=== PATIENT | male | born 1950 | race Caucasian/White ===

== ENCOUNTER 2017-02-15 18:08 | Inpatient (IN) | payer MEDICARE, MEDICAID ==
[2017-02-15] MEDS ORDERED: ACETAMINOPHEN TAB 325 MG TAB PO PRN (23:27)
[2017-02-15] MEDS ORDERED: MAG HYDROX/AL HYDROX/SIMETH 30 ML CUP PO PRN (23:27)
[2017-02-15] MEDS ORDERED: ZIPRASIDONE 20 MG VIAL IM PRN (23:27)
[2017-02-16] MEDS: NICOTINE 14MG/24HR PATCH TRANSDERM SCH ×2 (01:37→08:01)
[2017-02-16 01:40] VITALS: BMI 29.7
[2017-02-16] MEDS: ASPIRIN 81 MG CHEW PO SCH (08:02)
[2017-02-16] MEDS: METOPROLOL TARTRATE 12.5 MG TAB PO SCH (08:02)
[2017-02-16] MEDS: APIXABAN 5 MG TAB PO SCH ×2 (08:02→21:21)
[2017-02-16] MEDS ORDERED: NICOTINE 14MG/24HR PATCH TRANSDERM SCH (09:00)
--- NOTE | 2017-02-16 09:52 | P.HP ---
Psychiatric H&P - . H&P Date: 02/16/17 History & Physical: DATE OF SERVICE: 02/16/2017 DATE OF ADMISSION: 02/15/2017 IDENTIFYING DATA: The patient is a 66-year-old male. He lives alone. He presented to the emergency room of [facility] for unclear reasons. CHIEF COMPLAINT: The patient was confused. He had disorganized behavior. He had some agitation. He had delusional thinking. HISTORY OF PRESENTING ILLNESS: Information is limited. We have medical reports from [facility] for 02/14 and 02/15/20172016. The patient could only provide very limited information. According to records the patient had a hospitalization prior to 02/14 for acute kidney injury elevated transaminases with presumed dehydration. He left A. He returned to the emergency department on 02/14. The patient provided very limited information. The family reported that the patient was "not acting himself that he is very delusional. He is having stressors at home because he lost contact with his sons. Family is very concerned about his ways of acting, they state that he is not himself." "He simply showed up to his neighbor's house, requested to go into the car without clear reason why. When the neighbor asked him what is going on, he told that neighbor that he was poisoned, that the water that he just drank was poisoned, his urine was becoming brown in color, and that the current world is a fake world/a parallel world and that this could potentially be helped." "He was behaving erratically, appeared to be unstable, therefore neighbor was able to convince him to come to the hospital. Patient was quite agitated, upset and showed signs of paranoia to his surrounding, he was concerned that people are following him." When I talked to the patient he was not able to give any information regarding his current situation. The only thing he could say was that he drove himself to the hospital. He acknowledged that to previously he had walked out of a hospital though he gave no reason for doing that. He recalled signing a form. He said that when he left he called a friend. He then said that he came to the conclusion that he should go back to the hospital. When I asked him why he went back to the hospital he said he was confused about that and didn't know. He states that he has not had a prior psychiatric hospitalization. He says that he had been on some psychiatric medicines about 20 years ago. He said he has been sleeping poorly. He could not provide any further information. From [facility] reconciled medication list included: Percocet 7.5 when necessary, amiodarone 200 mg twice a day, aspirin 81 mg, atorvastatin 10 mg daily, Ceftin 500 mg twice a day, Valium 5 mg twice a day, metoprolol 50 mg daily, Flagyl 500 mg 3 times a day for 10 days. All lab work from [facility] dated 02/15/2017 was normal including CBC and urinalysis comprehensive metabolic profile and lipid profile. Urine drug screen was negative SUBSTANCE USE: [Uncertain] PAST MEDICAL HISTORY: As per medical consultation FAMILY AND SOCIAL HISTORY: The patient reports that he is . He has 4 children. He works intermittently doing painting. He lives alone. MENTAL STATUS EXAM: The patient gave fair eye contact. Psychomotor activity was slowed. He hesitated and answering most questions as if he was trying to gather his thoughts. He had a confused manner. He acknowledges that his thoughts were "foggy." His affect was flat. His mood reserved. There was no immediate evidence for thought disorder. There was no indication of thoughts or impulses towards harm to self or others. On cognitive exam the patient gave the correct date without hesitation though initially said it was Sunday then not thought about it briefly and said it was towards the end of the week may be Sunday or . He didn't make an effort to answer other formal cognitive questions. PHYSICAL EXAM PER MEDICAL CONSULTATION ASSESSMENT: This 66-year-old male is diagnosed with delusional disorder of unclear etiology. He does show basic orientation which would call into question other his current state reflects delirium. Precipitating factors are uncertain. DIAGNOSIS 1. Delusional disorder of uncertain etiology asked 2. Recent history of metabolic encephalopathy 3. Suspected sepsis with leukocytosis 4. Rule out delirium 5. Atrial fibrillation 6. Benign essential hypertension 7. COPD 8. Hyperlipidemia 9. Tobacco use RECOMMENDATION/PLAN: The patient will be admitted for comprehensive medical psychiatric and psychosocial evaluation. We will engage the patient in individual and group therapeutic activities. At this point I will continue his outpatient medications. I will consider initiation of an antipsychotic medication to address delusions which may relate to a primary psychiatric disorder or an underlying metabolic disorder. We will need input from family for further evaluation Allergies Allergy/AdvReac Type Severity Reaction Status Date / Time codeine Allergy Rash/Hives Verified 02/16/17 01:42 Vital Signs Temp 98.2 F 02/16/17 06:19 Pulse 85 02/16/17 06:19 Resp 17 02/16/17 06:19 BP 128/61 02/16/17 06:19 Pulse Ox 95 02/16/17 01:30 Intake & Output 02/15/17 02/16/17 02/16/17 18:59 06:59 18:59 Weight 86.001 kg 02/16/17 09:23
[2017-02-16] MEDS: LORazepam 1 MG TAB PO PRN (12:07)
--- NOTE | 2017-02-16 15:14 | P.MDCNMH ---
History of Present Illness H&P Date: 02/16/17 Chief Complaint: Medical management This is a 66-year-old male. He is unable to provide his primary care physician. He has a past medical history of atrial fibrillation on eliquis, amiodarone and metoprolol, hyperlipidemia, hypertension, skin cancer, pneumonia , tremor in the left hand, rectal fistula, tobacco use and dependence. Patient thinks that he was brought to the hospital through [facility] because he started seen people he knew from his past. He denies any depression or suicidal thoughts. Patient is very difficult to keep on question and he repeatedly puts his head down on the table. Patient denies having any chest pain, shortness of breath or palpitations. Review of Systems All systems: negative Constitutional: Denies chills, Denies fever Eyes: denies blurred vision, denies pain Ears, nose, mouth and throat: Denies headache, Denies sore throat Cardiovascular: Denies chest pain, Denies shortness of breath Respiratory: Denies cough Gastrointestinal: Denies abdominal pain, Denies diarrhea, Denies nausea, Denies vomiting Musculoskeletal: Denies myalgias Integumentary: Denies pruritus, Denies rash Neurological: Denies numbness, Denies weakness Psychiatric: Reports confusion, Denies anxiety, Denies depression Endocrine: Denies fatigue, Denies weight change Past Medical History Past Medical History: Atrial Fibrillation, Cancer, Hyperlipidemia, Hypertension , Pneumonia Additional Past Medical History / Comment(s): vertigo, hx. skin cancer, pneumonia in 2014, intermittent tremor left hand, hx. rectal fistula, occasional bleeding History of Any Multi-Drug Resistant Organisms: None Reported Past Surgical History: Cardiac Ablation Past Anesthesia/Blood Transfusion Reactions: No Reported Reaction Past Psychological History: No Psychological Hx Reported Smoking Status: Current every day smoker Past Alcohol Use History: None Reported Additional Past Alcohol Use History / Comment(s): Patient is a smoker one pack per day since he was 14 years of age. He denies any medical marijuana, marijuana, street drugs or alcohol use. Past Drug Use History: None Reported - Past Family History Mother Family Medical History: No Reported History Additional Family Medical History / Comment(s): Mother is alive at age 89 with history of atrial fibrillation, hypertension, hyperlipidemia. Father Additional Family Medical History / Comment(s): Father at age 56 from complications of alcohol abuse. Brother(s) Additional Family Medical History / Comment(s): Patient has 3 brothers and he does not know their medical history. Patient has 1 sister and does not know her medical conditions. Patient has 4 sons with no major medical problems. Medications and Allergies Home Medications Medication Instructions Recorded Confirmed Type Amiodarone [Cordarone] 100 mg PO HS 03/16/16 02/16/17 History Apixaban [Eliquis] 5 mg PO BID 03/16/16 02/16/17 History Aspirin 81 mg PO DAILY 03/16/16 02/16/17 History Atorvastatin [Lipitor] 10 mg PO HS 03/16/16 02/16/17 History Metoprolol Tartrate 12.5 mg PO DAILY 03/16/16 02/16/17 History Allergies Allergy/AdvReac Type Severity Reaction Status Date / Time codeine Allergy Rash/Hives Verified 02/16/17 01:42 Physical Exam Vitals: Vital Signs Temp Pulse Pulse Resp BP BP Pulse Ox 02/16/17 06:19 98.2 F 85 17 128/61 02/16/17 01:30 98.9 F 90 16 136/64 95 Intake and Output 02/15/17 02/16/17 02/16/17 22:59 06:59 14:59 Other: Weight 86.001 kg Gen: This is a 66-year-old male. Patient appears to be somewhat confused. He is unable to follow conversation in complete sentences. He repeatedly puts his head on the table as if he is going to go to sleep. HEENT: Head is atraumatic, normocephalic. Pupils equal, round. Sclerae is anicteric. NECK: Supple. No JVD. No lymphadenopathy. No thyromegaly. LUNGS: Clear to auscultation. No wheezes or rhonchi. No intercostal retractions. HEART: Regular rate and rhythm. No murmur. ABDOMEN: Soft. Bowel sounds are present. No masses. No tenderness. EXTREMITIES: No pedal edema. No calf tenderness. NEUROLOGICAL: Patient is awake, alert and oriented x3. Cranial nerves 2 through 12 are grossly intact. Cranial Nerve Examination - Cranial Nerves Cranial Nerve II- Optic: Intact Cranial Nerve III- Oculomotor: Intact Cranial Nerve IV- Trochlear: Intact Cranial Nerve V- Trigeminal: Intact Cranial Nerve - Abducens: Intact Cranial Nerve VII- Facial: Intact Cranial Nerve VIII- Auditory: Intact Cranial Nerve IX- Glossopharyngeal: Intact Cranial Nerve X- Vagus: Intact Cranial Nerve XI- Accessory: Intact Cranial Nerve XII- Hypoglossal: Intact Assessment and Plan Plan: 1. Acute psychosis. Patient admitted to the mental health unit. Continue current plan of care. 2. Paroxysmal atrial fibrillation. Continue amiodarone 100 mg at bedtime, eliquis 5 mg twice daily and Lopressor 12.5 mg daily, aspirin 81 mg daily. 3. Hypertension. Continue metoprolol 12.5 mg daily. 4. Hyperlipidemia. Continue Lipitor 20 mg at bedtime. 5. Tobacco use and dependence. Continue nicotine patch. Impression and plan of care have been directed as dictated by the signing physician. Angela Schreiber nurse practitioner acting as scribe for signing physician.
[2017-02-16] MEDS: OLANZapine 5 MG TAB PO SCH ×2 (16:16→21:19)
--- NOTE | 2017-02-16 16:57 | P.PN ---
Progress Note - Text DATE OF SERVICE: 02/16/2017 CHIEF COMPLAINT: The patient was confused. He had disorganized behavior. He had some agitation. He had delusional thinking. INTERVAL HISTORY: [The patient has been doing fair. He had a quiet evening last night. He slept fair. Today he has been up and about. He mostly wanders and doesn't seem to pay too much attention to things going on around him. He may make offhand comments seemingly talking to no one in particular. He has attended groups though mostly he is quiet. In one of the groups he Whispering to staff "I'm sorry" for no clear reason. service worker helper documented the following: "Attempted to meet with pt to complete PSA. Pt is extremely paranoid and delusional. Pt is restless often going from sitting in the chair, to sitting on the ground, to standing. When this SW asked why he is sitting on the ground, he stated "I don't deserve to sit in a chair". Pt is unable to answer basic questions such as if he has children or if he is currently . SW will attempt to secure family member's phone numbers to complete PSA, as pt is unable to at this time d/t his psychosis." He has approached me when I've been in the ferrer though seems to have trouble getting any words out. At one point he was whispering words very softly to me though I couldn't understand what he was sane. He hasn't had change in his general health. ] MENTAL STATUS EXAM: [The patient gave fair to poor eye contact. Psychomotor motor activity was slowed. He mumbled a few words now and then. He didn't say anything that was meaningful. He walked in a slow fashion almost as if he was in a daze. His affect was flat. Mood reserve. It was difficult to say if he was distressed.] ASSESSMENT: I'll continue the current diagnosis and treatment plan. We will continue to make efforts to engage the patient in individual and group therapeutic activities. I will start the patient on Zyprexa 5 mg 3 times a day. The aim of Zyprexa is to help address symptoms of psychosis. At this point the presumptive diagnosis is psychiatric rather than a general medical issues such as delirium. The basis of this includes that there are times where he seems to be oriented to the specific conditions and motor function appears intact without signs of things such as slurred speech or ataxia. We will continue to focus on stabilization.
[2017-02-16] MEDS ORDERED: OLANZapine 5 MG TAB PO ONE (19:00)
[2017-02-16] MEDS: AMIODARONE 100 MG TAB PO SCH (21:15)
[2017-02-16] MEDS: ATORVASTATIN 20 MG TAB PO SCH (21:20)
[2017-02-17] MEDS: MAGNESIUM HYDROXIDE 2,400 MG/10 ML CUP PO PRN (07:11)
[2017-02-17] MEDS: NICOTINE 14MG/24HR PATCH TRANSDERM SCH (08:38)
[2017-02-17] MEDS: APIXABAN 5 MG TAB PO SCH ×2 (08:39→20:47)
[2017-02-17] MEDS: ASPIRIN 81 MG CHEW PO SCH (08:39)
[2017-02-17] MEDS: OLANZapine 5 MG TAB PO SCH ×3 (08:39→21:23)
[2017-02-17] MEDS: METOPROLOL TARTRATE 12.5 MG TAB PO SCH (08:39)
--- NOTE | 2017-02-17 20:04 | P.PN ---
Progress Note - Text Date of service: 02/17/2017 Chief complaint: "I don't know " Subjective: The patient has been seen today as follow-up, chart reviewed, case discussed with the treatment team. Patient continued to present paranoid, and guarded. Patient denies any delusions about other people poisoning the water, and he doesn't presented was any violent or combative behavior. Patient denies feeling depressed, and he denies severe anxiety. Patient denies feeling suicidal or homicidal. The patient denies hearing voices or any other hallucinations. The patient was very fixated about leaving the hospital and he asking about continue his treatment as outpatient or going for outpatient past for 1 day. Review of other systems: Patient denies any physical symptoms besides what has been mentioned above. No breathing problems, no chest pain reported today. Objective: Vitals has been reviewed. Mental status examination; The patient appears his stated age, fairly groomed, was no specific features The patient has normal gait with no abnormal movement. Patient was guarded superficially cooperative with poor eye contact. Vision has decreased psychomotor activity. Speech was very few, prompted but low tone and soft. Mood is anxious with constricted affect. Thought process characterized by thought blocking but linear and coherent. Patient denies any suicidal or homicidal thoughts and no delusions could be elicited today. Patient was alert but he didn't answer questions about orientation and attention. The patient has limited insight and judgment about his mental illness and treatment. Judgment: Patient has limited judgment about his psychiatric treatment. Assessment: Delusional disorder. Unspecified psychosis. Plan: Continue inpatient hospitalization for further monitoring and stabilization of psychiatric symptoms. Continue current management including psychotropic medications Zyprexa for psychotic symptoms.
[2017-02-17] MEDS: ATORVASTATIN 20 MG TAB PO SCH (20:47)
[2017-02-17] MEDS: AMIODARONE 100 MG TAB PO SCH (20:47)
[2017-02-18] MEDS: NICOTINE 14MG/24HR PATCH TRANSDERM SCH (09:14)
[2017-02-18] MEDS: METOPROLOL TARTRATE 12.5 MG TAB PO SCH (09:17)
[2017-02-18] MEDS: APIXABAN 5 MG TAB PO SCH ×2 (09:17→21:13)
[2017-02-18] MEDS: ASPIRIN 81 MG CHEW PO SCH (09:17)
[2017-02-18] MEDS: OLANZapine 5 MG TAB PO SCH ×3 (09:19→21:13)
--- NOTE | 2017-02-18 15:35 | P.PN ---
Progress Note - Text Date of service: 02/18/2017 Chief complaint: "Still!!" Subjective: The patient has been seen today as follow-up, chart reviewed, case discussed with the treatment team. The patient continued to present paranoid and bizarre speech. He was talking about " I wish that all wouldn't happen". Patient has expressed not happy been here at [facility]. Patient denies feeling anybody want to poison him and denies feeling paranoid but he presented very guarded. Patient reports has good sleep last night but couldn't give any number of hours. Patient reports good appetite. He reports still feel depressed and still has intermittent suicidal thoughts. He denies any plans or intent to hurt self or others. He keep asking to be released for sometime. Review of other systems: Patient denies any physical symptoms besides what has been mentioned above. No breathing problems, no chest pain reported today. Objective: Vitals has been reviewed. Mental status examination; The patient appears his stated age, fairly groomed, was no specific features The patient has normal gait with no abnormal movement. Patient was guarded, superficially cooperative with poor eye contact. Patient has decreased psychomotor activity. Speech was very few, prompted but low tone and soft. Mood is anxious with constricted affect. Thought process characterized by thought blocking but linear and coherent. Patient denies any suicidal or homicidal intent but has intermittent SI. No delusions could be elicited today. Patient was alert and fully oriented to time and place. The patient has limited insight and judgment about his mental illness and treatment. Judgment: Patient has limited judgment about his psychiatric treatment. Assessment: Delusional disorder. Unspecified psychosis. Plan: Continue inpatient hospitalization for further monitoring and stabilization of psychiatric symptoms. Continue current management including psychotropic medications Zyprexa for psychotic symptoms.
[2017-02-18] MEDS: AMIODARONE 100 MG TAB PO SCH (21:13)
[2017-02-18] MEDS: ATORVASTATIN 20 MG TAB PO SCH (21:13)
[2017-02-19] MEDS: METOPROLOL TARTRATE 12.5 MG TAB PO SCH (08:28)
[2017-02-19] MEDS: APIXABAN 5 MG TAB PO SCH ×2 (08:29→21:31)
[2017-02-19] MEDS: ASPIRIN 81 MG CHEW PO SCH (08:29)
[2017-02-19] MEDS: LORazepam 1 MG TAB PO PRN (08:30)
[2017-02-19] MEDS: NICOTINE 14MG/24HR PATCH TRANSDERM SCH (08:30)
[2017-02-19] MEDS: OLANZapine 5 MG TAB PO SCH ×2 (08:30→16:26)
--- NOTE | 2017-02-19 18:49 | P.PN ---
Progress Note - Text DATE OF SERVICE: 11/06/2016 CHIEF COMPLAINT: The patient was confused. He had disorganized behavior. He had some agitation. He had delusional thinking. INTERVAL HISTORY: The patient has been doing fair. He has shown some progress in terms of clearing of her thought process. Sunday he seemed to be generally appropriate in his responses and a function on the unit. It is noted that on Sunday Dr. Aguilar documented "paranoid and bizarre speech.... And very guarded." It's noted that in the groups he attended on Sunday very similar observations were documented. He slept well last night. Today the patient has been doing fairly well. We had a family meeting with the patient's ex- and son. Both were able to say that he had some mild decline in function though it was not clear over what period time. There was some suggestion that possibly over the last several months he has had increasing problems with paranoid thinking. When I reviewed medical records from [facility] it was noted that February 13 he had significant elevation of LFTs including an ALT of 670. Records did not indicate what the final assessment was regarding the elevated LFTs though he was given a diagnosis of metabolic encephalopathy. Today he was able to communicate fairly well in the family session though he did have some struggles keeping on track in the conversation. He got upset a few different times in the course of the conversation. He felt people were interjecting so that he had trouble maintaining his train of thought. He hasn' t had change in his general health. MENTAL STATUS EXAM: The patient had fair eye contact. Psychomotor activity was restless. he answered a fair amount to questions with direct responses. There were several times that he seemed to need to gather his thoughts and that he had trouble getting his words out. He had an intense and irritable affect. His mood was dysphoric. He was somewhat distressed. On cognitive exam he could give me the day and date without difficulty. He could give me the name of the president without difficulty. He was able to remember the name of another patient with a little hesitancy in coming up with her name. He was aware of circumstances. ASSESSMENT: I will continue the current diagnosis and treatment plan. I will continue psychotropic medications the same though will switch his Zyprexa to 5 mg in the morning 10 mg at bedtime. He continues to show some moderate difficulty in both thought content and thought process. Etiology is unclear. He appears to be showing not continued recovery from mom metabolic encephalopathy. We will continue to focus on stabilization and discharge planning.
[2017-02-19] MEDS ORDERED: OLANZapine 10 MG TAB PO SCH (21:00)
[2017-02-19] MEDS: AMIODARONE 100 MG TAB PO SCH (21:30)
[2017-02-19] MEDS: ATORVASTATIN 20 MG TAB PO SCH (21:31)
[2017-02-20 07:07] VITALS: BP 139/63; PULSE 65; RESP 16; TEMP 98.6
[2017-02-20] MEDS: ASPIRIN 81 MG CHEW PO SCH (07:50)
[2017-02-20] MEDS: NICOTINE 14MG/24HR PATCH TRANSDERM SCH (07:50)
[2017-02-20] MEDS: METOPROLOL TARTRATE 12.5 MG TAB PO SCH (07:50)
[2017-02-20] MEDS: APIXABAN 5 MG TAB PO SCH (07:51)
[2017-02-20 08:22] LABS: Basophils # (A) 0.1 k/uL (0-0.2); Basophils % (A) 1 %; CH 32.5; CHCM 32.8; Eosinophils # (A) 0.4 k/uL (0-0.7); Eosinophils % (A) 5 %; HCT 46.9 % (39.0-53.0); HDW 2.04; HGB 15.7 gm/dL (13.0-17.5); Luc # (Auto) 0.21; Luc % (Auto) 2; Lymphocytes # (A) 2.4 k/uL (1.0-4.8); Lymphocytes % (A) 24 %; MCH 33.3 pg (25.0-35.0); MCHC 33.5 g/dL (31.0-37.0); MCV 99.5 fL (80.0-100.0); Mean Platelet Volume 8.4; Monocytes # (A) 0.7 k/uL (0-1.0); Monocytes % (A) 7 %; Neutrophils % (A) 62 %; RBC 4.72 m/uL (4.30-5.90); RDW 12.9 % (11.5-15.5); WBC 9.8 k/uL (3.8-10.6); WBC (Perox) 9.63
[2017-02-20 08:27] LABS: ALT 89 U/L (21-72); AST 69 U/L (17-59); Alkaline Phosphatase 44 U/L (38-126); Anion Gap 9 mmol/L; Blood Urea Nitrogen 14 mg/dL (9-20); Calcium 8.9 mg/dL (8.4-10.2); Carbon Dioxide 25 mmol/L (22-30); Chloride 107 mmol/L (98-107); GGT 18 U/L (15-73); Glucose 100 mg/dL (74-99); Non-African American GFR(MDRD) >60 (>60 ml/min/1.73 sqM); Potassium 4.4 mmol/L (3.5-5.1); Sodium 141 mmol/L (137-145); Total Bilirubin 0.9 mg/dL (0.2-1.3); Total Protein 7.3 g/dL (6.3-8.2)
[2017-02-20] MEDS ORDERED: OLANZapine 5 MG TAB PO SCH (09:00)
--- NOTE | 2017-02-20 10:15 | P.PN ---
Progress Note - Text DATE OF SERVICE: 02/20/2017 CHIEF COMPLAINT: The patient was confused. He had disorganized behavior. He had some agitation. He had delusional thinking. INTERVAL HISTORY: Patient has been doing fair. He had a quiet evening last night. He slept well. He has been up and about today. He attends groups. Nurses note that he does seem to be a little confused today. When I asked him about that he suggested that he was a little mixed up on what day of the week it was the cause of the holiday. He is able to give the day and date and overall has fairly good orientation. It is noted that he seems to struggle with his train of thought. He suggests some of that is his nature, that he has some difficulties maintaining attention. He tends to ask questions over and then seems a little uncertain about process seen in the answers he receives. He has a vehicle and drives though says that when he is discharged he will would be getting rides with a friend until he is sure he is comfortable driving. He was somewhat uncertain about plans that we had set up yesterday in the family meeting or discharge. At one point he said maybe he should live with his son for a short period of time to be sure everything is okay for him but then he said he didn't want to put that burden on his son. He will be going back to live in his own trailer. He wondered if there was somebody available to check up on him. He tolerates his medications. MENTAL STATUS EXAM: Patient gave fair eye contact. Psychomotor activity slowed. [place] was slow and monotone. Her was latency in his responses. He seemed to have some difficulty tracking the conversation. He was somewhat repetitive questions. His affect was blunted. His mood reserved. He didn't appear to be significantly distressed. There was no indication of thought disorder. ASSESSMENT: We will continue the current diagnosis and treatment plan. I will continue psychotropic medications the same. We are aiming for discharge in the next few days. I indicated to the patient that our social media editor would be setting up follow-up appointments to manage his psychotropic medications which might be with a primary care physician or a psychiatrist. The patient had suggested in the family meeting yesterday that individual therapy might be helpful. We need to assess his lab work from today as he will need to follow up with primary care for the medical issues she first presented with on February 12. Those issues included assessment of metabolic encephalopathy and elevated liver functions. Her was question of sepsis. Lab work is pending. One limitation we have in discharge is that family members who know him including his ex- have not been able to give reliable information as to his previous baseline of function and whether there are any concerns that family members might have in regards to his returning home to live independently. It's not clear that the limited processing problems that he seems to have should be an impediment for his discharge. I would aim for discharge in the next few days.
[2017-02-20] MEDS ORDERED: ASPIRIN 325 MG TAB PO STA ×2 (13:42→15:56)
--- NOTE | 2017-02-20 14:05 | XR ---
EXAMINATION TYPE: XR abdomen 1V DATE OF EXAM: 02/20/2017 COMPARISON: NONE HISTORY: Constipation TECHNIQUE: 2 views FINDINGS: There is no sign of intestinal obstruction or pneumoperitoneum. There is retained fecal mat erial throughout the colon. There is no sign of a mass. There is a 5 mm calcification over the left k [place]ney. IMPRESSION: Constipation. Probable left renal calculus.
[2017-02-20] MEDS: MAGNESIUM HYDROXIDE 2,400 MG/10 ML CUP PO PRN (14:34)
[2017-02-20 14:48] LABS: Basophils # (A) 0.1 k/uL (0-0.2); Basophils % (A) 1 %; CH 32.7; CHCM 33.3; Eosinophils # (A) 0.3 k/uL (0-0.7); Eosinophils % (A) 3 %; HCT 43.9 % (39.0-53.0); HDW 2.07; HGB 15.3 gm/dL (13.0-17.5); Luc # (Auto) 0.19; Luc % (Auto) 2; Lymphocytes # (A) 2.1 k/uL (1.0-4.8); Lymphocytes % (A) 19 %; MCH 34.4 pg (25.0-35.0); MCHC 34.8 g/dL (31.0-37.0); MCV 98.7 fL (80.0-100.0); Mean Platelet Volume 8.2; Monocytes # (A) 0.6 k/uL (0-1.0); Monocytes % (A) 5 %; Neutrophils # (A) 7.8 k/uL (1.3-7.7); Neutrophils % (A) 71 %; RBC 4.45 m/uL (4.30-5.90); RDW 12.9 % (11.5-15.5); WBC 11.1 k/uL (3.8-10.6); WBC (Perox) 9.96
[2017-02-20 15:01] LABS: ALT 94 U/L (21-72); AST 63 U/L (17-59); Alkaline Phosphatase 45 U/L (38-126); Anion Gap 10 mmol/L; Blood Urea Nitrogen 19 mg/dL (9-20); Carbon Dioxide 30 mmol/L (22-30); Chloride 103 mmol/L (98-107); Glucose 171 mg/dL (74-99); Non-African American GFR(MDRD) 55 (>60 ml/min/1.73 sqM); Potassium 4.5 mmol/L (3.5-5.1); Sodium 143 mmol/L (137-145); Total Bilirubin 0.6 mg/dL (0.2-1.3); Total Protein 7.1 g/dL (6.3-8.2)
[2017-02-20] MEDS ORDERED: NITROGLYCERIN OINT 1 INCH/GM PACKET TOPICAL STA (15:55)
== END 2017-02-20 16:31 | disposition short-term general hospital (02) | DRG 885 ==
LOC: 3MHU 20:51
PROVIDERS: ADMIT Psychiatry & Neurology Psychiatry; ATTEND Psychiatry & Neurology Psychiatry
DX: F22 Delusional disorders (principal); G93.41 Metabolic encephalopathy; I48.91 Unspecified atrial fibrillation; R45.851 Suicidal ideations; J44.9 Chronic obstructive pulmonary disease, unspecified; E78.5 Hyperlipidemia, unspecified; I10 Essential (primary) hypertension; Z72.0 Tobacco use; Z79.899 Other long term (current) drug therapy
CPT/HCPCS: 74000; 80053; 82977; 83690; 84484; 85025; 93005

== ENCOUNTER 2017-02-20 16:00 | Inpatient (IN) | payer MEDICARE, OTHER ==
[2017-02-20 17:13] VITALS: BMI 29.6
[2017-02-20] MEDS ORDERED: ACETAMINOPHEN TAB 325 MG TAB PO PRN (17:19)
[2017-02-20] MEDS ORDERED: LORazepam 1 MG TAB PO PRN (17:19)
[2017-02-20] MEDS ORDERED: MAG HYDROX/AL HYDROX/SIMETH 30 ML CUP PO PRN (17:20)
[2017-02-20] MEDS ORDERED: ZIPRASIDONE 20 MG VIAL IM PRN (17:20)
[2017-02-20] MEDS ORDERED: MAGNESIUM HYDROXIDE 2,400 MG/10 ML CUP PO PRN (17:20)
[2017-02-20 18:17] LABS: Creatine Kinase MB 8.4 ng/mL (0.0-2.4)
[2017-02-20 18:19] LABS: Troponin I 0.057 ng/mL (0.000-0.034)
[2017-02-20] MEDS: NITROGLYCERIN OINT 1 INCH/GM PACKET TOPICAL SCH ×2 (18:34→23:52)
[2017-02-20] MEDS: APIXABAN 5 MG TAB PO SCH (20:38)
[2017-02-20] MEDS ORDERED: OLANZapine 10 MG TAB PO SCH (21:00)
[2017-02-20] MEDS ORDERED: AMIODARONE 100 MG TAB PO SCH (21:00)
[2017-02-20] MEDS ORDERED: ATORVASTATIN 20 MG TAB PO SCH (21:00)
[2017-02-20] MEDS ORDERED: OLANZapine 5 MG TAB PO SCH (22:00)
[2017-02-21 00:37] LABS: Creatine Kinase MB 5.7 ng/mL (0.0-2.4); Troponin I 0.059 ng/mL (0.000-0.034)
[2017-02-21] MEDS: NITROGLYCERIN OINT 1 INCH/GM PACKET TOPICAL SCH ×2 (05:15→12:52)
[2017-02-21 05:45] LABS: Basophils # (A) 0.1 k/uL (0-0.2); Basophils % (A) 1 %; CH 32.7; CHCM 33.4; Eosinophils # (A) 0.5 k/uL (0-0.7); Eosinophils % (A) 4 %; HCT 41.2 % (39.0-53.0); HDW 2.03; HGB 14.6 gm/dL (13.0-17.5); Luc # (Auto) 0.16; Luc % (Auto) 1; Lymphocytes # (A) 2.2 k/uL (1.0-4.8); Lymphocytes % (A) 19 %; MCH 34.8 pg (25.0-35.0); MCHC 35.4 g/dL (31.0-37.0); MCV 98.2 fL (80.0-100.0); Mean Platelet Volume 7.9; Monocytes # (A) 0.6 k/uL (0-1.0); Monocytes % (A) 6 %; Neutrophils # (A) 8.2 k/uL (1.3-7.7); Neutrophils % (A) 70 %; RBC 4.19 m/uL (4.30-5.90); RDW 12.9 % (11.5-15.5); WBC 11.7 k/uL (3.8-10.6); WBC (Perox) 11.11
[2017-02-21 05:53] LABS: Anion Gap 6 mmol/L; Blood Urea Nitrogen 19 mg/dL (9-20); Calcium 8.6 mg/dL (8.4-10.2); Carbon Dioxide 27 mmol/L (22-30); Chloride 107 mmol/L (98-107); Glucose 108 mg/dL (74-99); Non-African American GFR(MDRD) >60 (>60 ml/min/1.73 sqM); Potassium 4.3 mmol/L (3.5-5.1); Sodium 140 mmol/L (137-145)
[2017-02-21 06:46] LABS: Creatine Kinase MB 4.7 ng/mL (0.0-2.4); Troponin I 0.058 ng/mL (0.000-0.034)
[2017-02-21] MEDS ORDERED: ASPIRIN 81 MG CHEW PO SCH (09:00)
[2017-02-21] MEDS ORDERED: METOPROLOL TARTRATE 12.5 MG TAB PO SCH (09:00)
[2017-02-21] MEDS ORDERED: OLANZapine 5 MG TAB PO SCH (09:00)
[2017-02-21 09:09] VITALS: RESP 16; TEMP 97.8
[2017-02-21] MEDS: APIXABAN 5 MG TAB PO SCH ×2 (09:10→09:42)
[2017-02-21] MEDS: NICOTINE 14MG/24HR PATCH TRANSDERM SCH ×2 (09:10→09:42)
--- NOTE | 2017-02-21 09:23 | P.CRDCN ---
History of Present Illness Consult date: 02/21/17 Requesting physician: Vicky Pascal Reason for Consult (text): Abnormal troponins Chief complaint: Psychosis History of present illness: This is a 66-year-old gentleman with history of paroxysmal atrial fibrillation, hyperlipidemia, hypertension, skin cancer, nicotine dependence, psychosis, he was admitted to the hospital because he thought that his water at home was poisoned. He was states he was also seeing people who were diagnosed past. He states that the water tasted funny, and they have been cleaning out the lines and felt that it may have come into his water system. Patient states he was having pain in the right rib area, tender to the touch, , no difficulty in breathing, no palpitations. Cardiology consultation was requested on the patient because of abnormal troponins. EKG performed on arrival showed a normal sinus rhythm with no acute changes. He has been in normal sinus rhythm since his admission here. Patient states he was on Eliquis for anticoagulation after and ablation was performed at [facility], he also states that this had been discontinued approximately one year ago. Troponins were drawn on the patient's admission which came back to be 0.06, 0.05, 0.05. For this reason he was transferred to the telemetry unit. Telemetry VC 11.7, hemoglobin 14.6, platelet count 185. Sodium 140, potassium 4.3, BUN 19, creatinine 0.97. Past Medical History Past Medical History: Atrial Fibrillation, Cancer, Hyperlipidemia, Hypertension , Pneumonia Additional Past Medical History / Comment(s): vertigo, hx. skin cancer, pneumonia in 2014, intermittent tremor left hand, hx. rectal fistula, occasional bleeding History of Any Multi-Drug Resistant Organisms: None Reported Past Surgical History: Cardiac Ablation Past Anesthesia/Blood Transfusion Reactions: No Reported Reaction Past Psychological History: No Psychological Hx Reported Smoking Status: Current every day smoker - Past Family History Mother Family Medical History: No Reported History Additional Family Medical History / Comment(s): Mother is alive at age 89 with history of atrial fibrillation, hypertension, hyperlipidemia. Father Additional Family Medical History / Comment(s): Father at age 56 from complications of alcohol abuse. Brother(s) Additional Family Medical History / Comment(s): Patient has 3 brothers and he does not know their medical history. Patient has 1 sister and does not know her medical conditions. Patient has 4 sons with no major medical problems. Medications and Allergies Home Medications Medication Instructions Recorded Confirmed Type Amiodarone [Cordarone] 100 mg PO HS 03/16/16 02/20/17 History Apixaban [Eliquis] 5 mg PO BID 03/16/16 02/20/17 History Aspirin 81 mg PO DAILY 03/16/16 02/20/17 History Atorvastatin [Lipitor] 10 mg PO HS 03/16/16 02/20/17 History Metoprolol Tartrate 12.5 mg PO DAILY 03/16/16 02/20/17 History Allergies Allergy/AdvReac Type Severity Reaction Status Date / Time codeine Allergy Rash/Hives Verified 02/16/17 01:42 Physical Exam Vitals: Vital Signs Temp Pulse Pulse Resp BP Pulse Ox 02/21/17 04:00 97.5 F L 62 18 129/60 98 02/21/17 00:00 97.1 F L 74 74 18 160/73 92 L 02/20/17 20:00 72 72 18 132/62 94 L 02/20/17 17:10 98 F 74 18 154/72 93 L Intake and Output 02/20/17 02/21/17 02/21/17 22:59 06:59 14:59 Intake Total 240 Balance 240 Intake: Oral 240 Other: Voiding Method Toilet Toilet # Voids 1 Weight 85.82 kg 84.9 kg PHYSICAL EXAMINATION: HEENT: Head is atraumatic, normocephalic. Pupils equal, round. Neck is supple. There is no elevated jugular venous pressure. HEART EXAMINATION: Heart S1, S2 normal. No murmur or gallop heard. CHEST EXAMINATION: Lungs are clear to auscultation and precussion. No chest wall tenderness is noted on palpation or with deep breathing. ABDOMEN: Soft, nontender. Bowel sounds are heard. No organomegaly noted. EXTREMITIES: 2+ peripheral pulses with no evidence of peripheral edema and no calf tenderness noted. NEUROLOGIC patient is awake, alert and oriented -3. . Results 02/21/17 05:19 02/21/17 05:19 Cardiac Enzymes 02/20/17 02/20/17 02/21/17 Range/Units 17:13 23:12 05:19 CK-MB (CK-2) 8.4 H* 5.7 H* 4.7 H* (0.0-2.4) ng/mL Troponin I 0.057 H* 0.059 H* 0.058 H* (0.000-0.034) ng/mL CBC 02/21/17 Range/Units 05:19 WBC 11.7 H (3.8-10.6) k/uL RBC 4.19 L (4.30-5.90) m/uL Hgb 14.6 (13.0-17.5) gm/dL Hct 41.2 (39.0-53.0) % Plt Count 185 (150-450) k/uL Comprehensive Metabolic Panel 02/21/17 Range/Units 05:19 Sodium 140 (137-145) mmol/L Potassium 4.3 (3.5-5.1) mmol/L Chloride 107 (98-107) mmol/L Carbon Dioxide 27 (22-30) mmol/L BUN 19 (9-20) mg/dL Creatinine 0.97 (0.66-1.25) mg/dL Glucose 108 H (74-99) mg/dL Calcium 8.6 (8.4-10.2) mg/dL Current Medications Generic Name Dose Route Start Last Admin Trade Name Freq PRN Reason Stop Dose Admin Acetaminophen 650 mg 02/20/17 17:19 Tylenol Tab PO Q4HR PRN Fever and/ or Pain Al Hydroxide/Mg Hydroxide 30 ml 02/20/17 17:20 Maalox PO Q4HR PRN GI Upset Amiodarone HCl 100 mg 02/20/17 21:00 02/20/17 20:38 Cordarone PO 100 mg HS EMILY Administration Apixaban 5 mg 02/20/17 21:00 02/20/17 20:38 Eliquis PO 5 mg BID EMILY Administration Aspirin 81 mg 02/21/17 09:00 Aspirin PO DAILY EMILY Atorvastatin Calcium 20 mg 02/20/17 21:00 02/20/17 20:38 Lipitor PO 20 mg HS EMILY Administration Lorazepam 1 mg 02/20/17 17:19 Ativan PO TID PRN Anxiety Magnesium Hydroxide 2,400 mg 02/20/17 17:20 Milk Of Magnesia PO DAILY PRN Constipation Metoprolol Tartrate 12.5 mg 02/21/17 09:00 Lopressor PO DAILY [facility] Nicotine 1 patch 02/21/17 09:00 Habitrol 14mg/24hr Patch TRANSDERM DAILY EMILY Nitroglycerin 0.5 inch 02/20/17 19:00 02/21/17 05:15 Nitro-Bid Oint TOPICAL 0.5 inch Q6HR EMILY Administration Olanzapine 5 mg 02/21/17 09:00 Zyprexa PO DAILY EMILY Olanzapine 10 mg 02/20/17 21:00 02/20/17 20:37 Zyprexa PO 10 mg HS EMILY Administration Ziprasidone 20 mg 02/20/17 17:20 Geodon IM BID PRN Agitation or Acute Psychosis Intake and Output 02/20/17 02/21/17 02/21/17 22:59 06:59 14:59 Intake Total 240 Balance 240 Intake: Oral 240 Other: Voiding Method Toilet Toilet # Voids 1 Weight 85.82 kg 84.9 kg 02/21/17 05:19 02/21/17 05:19 EKG Interpretations (text) EKG shows a normal sinus rhythm with no acute changes. Assessment and Plan Plan: Assessment and plan #1 acute psychosis #2 paroxysmal atrial fibrillation, on amiodarone , Lopressor and aspirin 81 mg. History of prior ablation. #3 hypertension #4 hyperlipidemia #5 nicotine dependence #6 atypical chest pain #7 abnormal troponins not consistent with acute coronary syndrome could be secondary to oxygen supply and demand mismatch. Plan We will obtain an echocardiogram with Doppler study. Continue aspirin 81 mg daily, Lipitor 20 mg daily, metoprolol tartrate, amiodarone, and nicotine patch. Patient has been advised to undergo stress testing, he really does not want to have a stress test at this time. Further recommendations to follow. DNP note has been reviewed, I agree with a documented findings and plan of care. Patient was seen and examined.
--- NOTE | 2017-02-21 10:26 | ECHOF ---
Referral Reason:chest pain MEASUREMENTS -------- HEIGHT: 170.2 cm WEIGHT: 84.8 kg BP: 129/60 IVSd: 1.4 cm (0.6 - 1.1) LVIDd: 4.3 cm (3.9 - 5.3) LVPWd: 1.5 cm (0.6 - 1.1) IVSs: 2.0 cm LVIDs: 2.2 cm LVPWs: 1.9 cm LAESV Index (A-L): 27.33 ml/m Ao Diam: 3.5 cm (2.0 - 3.7) AV Cusp: 2.5 cm (1.5 - 2.6) LA Diam: 3.3 cm (2.7 - 3.8) MV EXCURSION: 22.213 mm (> 18.000) MV EF SLOPE: 50 mm/s (70 - 150) EPSS: 0.2 cm MV E Felipe: 0.68 m/s MV DecT: 183 ms MV A Felipe: 0.54 m/s MV E/A Ratio: 1.25 AV maxP.63 mmHg AV meanP.73 mmHg AR PHT: 915 ms RAP: 5.00 mmHg RVSP: 14.20 mmHg FINDINGS -------- Sinus rhythm. This was a technically good study. There is moderate concentric left ventricular hypertrophy. Overall left ventricular systolic function is normal with, an EF between 55 - 60 %. The right ventricle is normal in size and function. Normal LA size by volume 22+/-6 ml/m2. The right atrium is normal in size. There is mild aortic regurgitation. Peak/mean gradient across the Aortic Valve is 24.63mmHg / 12.73mmHg. Aortic valve is functionally bicuspid and is mildly thickened. AOV is possible Bicuspid. The mitral valve leaflets are mildly thickened. Mild mitral regurgitation is present. Mild tricuspid regurgitation present. The right ventricular systolic pressure, as measured by Doppler, is 14.20mmHg. Pulmonic valve appears structurally normal. The aortic root size is normal. The pericardium is normal. CONCLUSIONS -------- 1. Sinus rhythm. 2. Aortic valve is functionally bicuspid and is mildly thickened. 3. AOV is possible Bicuspid. 4. The mitral valve leaflets are mildly thickened. 5. Mild mitral regurgitation is present. 6. Mild tricuspid regurgitation present. 7. The right ventricular systolic pressure, as measured by Doppler, is 14.20mmHg. 8. Pulmonic valve appears structurally normal. 9. The aortic root size is normal. 10. The pericardium is normal. 11. This was a technically good study. 12. There is moderate concentric left ventricular hypertrophy. 13. Overall left ventricular systolic function is normal with, an EF between 55 - 60 %. 14. The right ventricle is normal in size and function. 15. Normal LA size by volume 22+/-6 ml/m2. 16. The right atrium is normal in size. 17. There is mild aortic regurgitation. 18. Peak/mean gradient across the Aortic Valve is 24.63mmHg / 12.73mmHg. MICROPHONE BOOM OPERATOR: Camelia Chiang RDCS
[2017-02-21 11:33] VITALS: BP 116/78; PULSE 67
--- NOTE | 2017-02-21 13:05 | P.CN ---
Psychiatric Consult - . Consult date: 02/21/17 Consult:: 02/21/17 13:00 DATE OF SERVICE: 02/21/2017 IDENTIFYING DATA: This patient is a 66-year-old occasion male who was transferred from the mental health floor to a medical bed due to chest pain. Consulted by the medical team as his chest pain was not cardiac in nature.. HISTORY OF PRESENT ILLNESS: The patient sitting up in bed, answered to his name. Reports that he is feeling better these he had some pain and that it's no longer bothering him. Asked if he was feeling well otherwise, and that Dr. Williamson is no longer here and that I was asked to come and see if he was needing to return to 3 . Patient states that he is feeling good, he spoke with his brother this morning, Fito, who would be the person to come pick,. This was the treatment plan that he and Dr. Gamboa had agreed upon yesterday prior to his transfer to the medical floor. Patient was admitted to [facility] with paranoid ideation, thinking that he was being poisoned. Patient denies having those thoughts now he is aware that there was some problem with their water system, and that it was being flushed and that was why he saw some brown material coming out of the faucet. Patient denies feeling depressed, sad, anxious. Denies any history of margarita/ hypomania. Patient denies feeling suicidal, has no past history of this. PAST PSYCHIATRIC HISTORY: Recent admission to [facility]. due to question of metabolic encephalopathy versus psychosis unspecified versus delusional disorder . MENTAL STATUS EXAM: . Patient alert and oriented 3, good eye contact, fair groomed in street clothing. Speech normal volume, rate and production. Coherent, logical and goal directed thought process. No JUANCHO, no FOI. [No TB/TW/ TI] Denied auditory and visual hallucinations. Denied paranoid ideation, delusions or IOR. Mood neutral to euthymic, affect and full range decreased intensity, congruent with mood. Denies suicidal ideation, denies homicidal ideation. Insight partial; Judgment grossly intact for treatment purposes IMPRESSIONS: 66-year-old gentleman with atypical chest pain transferred from 3 . yesterday. Has been evaluated by cardiology and does not appear to be having cardiac issues. Consult requested to determine if patient should be transferred back to [facility]. or discharged. He has a history of some psychosis that was never clearly delineated in that there may have been some metabolic abnormalities causing either misinterpretation of events or of psychosis. Patient responded to Zyprexa 5 mg every morning 10 mg daily at bedtime. Patient is not paranoid patient is not psychotic. Patient does not have suicidal or homicidal ideation. Patient can be discharged to home and does not need inpatient psychiatric admission. Psychosis, unspecified Rule out metabolic encephalopathy, versus delusion disorder PLAN: If Dr. Pascal can write the prescription, that would be great. If social science analyst can set appointment with primary care for follow-up, social science analyst could also call our social science analyst here on the floor Krystle if questions about follow-up care exist . 02/21/17 13:07
--- NOTE | 2017-02-21 14:14 | P.HPIM ---
History of Present Illness H&P Date: 02/21/17 Chief Complaint: Chest pain HISTORY AND PHYSICAL AND DISCHARGE SUMMARY: This is a 66-year-old male. He is unable to provide his primary care physician. He has a past medical history of atrial fibrillation on eliquis, amiodarone and metoprolol, hyperlipidemia, hypertension, skin cancer, pneumonia , tremor in the left hand, rectal fistula, tobacco use and dependence. Patient was initially seen on the mental health unit where he thought that he was brought to the hospital through [facility] because he started seeing people he knew from his past. While on the mental health unit, yesterday patient developed left chest pain that was under his breast. He states it's a little sore to touch. He denies any palpitations. He states it is "on the bone"and points to his ribs under his left breast. Patient states that he is off eliquis but follows with information technology associate. He also states he had an ablation done a couple years ago. There is a sitter at the bedside. Patient is subsequently been seen by cardiology who will address his home medications for his atrial fibrillation. He has been evaluated by psychiatry, Dr. Tran , and has been cleared for discharge home on his current psychiatric medications. Patient will be discharged home today in stable condition. Review of Systems All systems: negative Constitutional: Denies chills, Denies fever Eyes: denies blurred vision, denies pain Ears, nose, mouth and throat: Denies headache, Denies sore throat Cardiovascular: Reports chest pain, Denies decreased exercise tolerance, Denies dyspnea on exertion, Denies edema, Denies irregular heart beat, Denies leg edema , Denies lightheadedness, Denies orthopnea, Denies palpitations, Denies paroxysmal nocturnal dyspnea, Denies rapid heart beat, Denies shortness of breath, Denies syncope Respiratory: Reports pain on inspiration, Denies cough, Denies cough with sputum , Denies dyspnea, Denies excessive sputum, Denies hemoptysis, Denies home oxygen , Denies wheezing Gastrointestinal: Denies abdominal pain, Denies diarrhea, Denies nausea, Denies vomiting Musculoskeletal: Denies myalgias Integumentary: Denies pruritus, Denies rash Neurological: Denies numbness, Denies weakness Psychiatric: Denies anxiety, Denies depression Endocrine: Denies fatigue, Denies weight change Past Medical History Past Medical History: Atrial Fibrillation, Cancer, Hyperlipidemia, Hypertension , Pneumonia Additional Past Medical History / Comment(s): vertigo, hx. skin cancer, pneumonia in 2014, intermittent tremor left hand, hx. rectal fistula, occasional bleeding History of Any Multi-Drug Resistant Organisms: None Reported Past Surgical History: Cardiac Ablation Past Anesthesia/Blood Transfusion Reactions: No Reported Reaction Past Psychological History: No Psychological Hx Reported Smoking Status: Current every day smoker - Past Family History Mother Family Medical History: No Reported History Additional Family Medical History / Comment(s): Mother is alive at age 89 with history of atrial fibrillation, hypertension, hyperlipidemia. Father Additional Family Medical History / Comment(s): Father at age 56 from complications of alcohol abuse. Brother(s) Additional Family Medical History / Comment(s): Patient has 3 brothers and he does not know their medical history. Patient has 1 sister and does not know her medical conditions. Patient has 4 sons with no major medical problems. Medications and Allergies Home Medications Medication Instructions Recorded Confirmed Type Amiodarone [Cordarone] 100 mg PO HS 03/16/16 02/20/17 History Apixaban [Eliquis] 5 mg PO BID 03/16/16 02/20/17 History Aspirin 81 mg PO DAILY 03/16/16 02/20/17 History Atorvastatin [Lipitor] 10 mg PO HS 03/16/16 02/20/17 History Metoprolol Tartrate 12.5 mg PO DAILY 03/16/16 02/20/17 History Allergies Allergy/AdvReac Type Severity Reaction Status Date / Time codeine Allergy Rash/Hives Verified 02/16/17 01:42 Physical Exam Vitals: Vital Signs Temp Pulse Pulse Resp BP Pulse Ox 02/21/17 04:00 97.5 F L 62 18 129/60 98 02/21/17 00:00 97.1 F L 74 74 18 160/73 92 L 02/20/17 20:00 72 72 18 132/62 94 L 02/20/17 17:10 98 F 74 18 154/72 93 L Intake and Output 02/20/17 02/21/17 02/21/17 22:59 06:59 14:59 Intake Total 240 Balance 240 Intake: Oral 240 Other: Voiding Method Toilet Toilet # Voids 1 Weight 85.82 kg 84.9 kg Gen: This is a 66-year-old male. Patient is seen in bed. He appears to be comfortable and in no acute distress. HEENT: Head is atraumatic, normocephalic. Pupils equal, round. Sclerae is anicteric. NECK: Supple. No JVD. No lymphadenopathy. No thyromegaly. LUNGS: Clear to auscultation. No wheezes or rhonchi. No intercostal retractions. HEART: Regular rate and rhythm. No murmur. ABDOMEN: Soft. Bowel sounds are present. No masses. No tenderness. EXTREMITIES: No pedal edema. No calf tenderness. Dorsalis pedis +2 bilaterally. NEUROLOGICAL: Patient is awake, alert and oriented x3. Cranial nerves 2 through 12 are grossly intact. Results CBC & Chem 7: 02/21/17 05:19 02/21/17 05:19 Labs: Abnormal Lab Results - Last 24 Hours (Table) 02/20/17 02/20/17 02/21/17 Range/Units 17:13 23:12 05:19 WBC (3.8-10.6) k/uL RBC (4.30-5.90) m/uL Neutrophils # (1.3-7.7) k/uL Glucose (74-99) mg/dL CK-MB (CK-2) 8.4 H* 5.7 H* 4.7 H* (0.0-2.4) ng/mL Troponin I 0.057 H* 0.059 H* 0.058 H* (0.000-0.034) ng/mL 02/21/17 02/21/17 Range/Units 05:19 05:19 WBC 11.7 H (3.8-10.6) k/uL RBC 4.19 L (4.30-5.90) m/uL Neutrophils # 8.2 H (1.3-7.7) k/uL Glucose 108 H (74-99) mg/dL CK-MB (CK-2) (0.0-2.4) ng/mL Troponin I (0.000-0.034) ng/mL Thrombosis Risk Factor Assmnt - DVT/VTE Prophylaxis DVT/VTE Prophylaxis: Pharmacologic Prophylaxis ordered - Choose All That Apply Each Factor Represents 1 point: Obesity (BMI >25) Each Risk Factor Represents 2 Points: Age 61-74 years Thrombosis Risk Factor Assessment Total Risk Factor Score: 3 Thrombosis Risk Factor Assessment Level: Moderate Risk Assessment and Plan Plan: 1. Chest wall pain. Patient will be discharged home today. Cardiology to evaluate. 2. Acute psychosis. Patient admitted to the mental health unit. Continue current plan of care. 2. Paroxysmal atrial fibrillation. Continue amiodarone 100 mg at bedtime, eliquis 5 mg twice daily and Lopressor 12.5 mg daily, aspirin 81 mg daily. Cardiology to determine his home medications regarding this. 3. Hypertension. Continue metoprolol 12.5 mg daily. 4. Hyperlipidemia. Continue Lipitor 20 mg at bedtime. 5. Tobacco use and dependence. Continue nicotine patch. Impression and plan of care have been directed as dictated by the signing physician. Angela Schreiber nurse practitioner acting as scribe for signing physician.
== END 2017-02-21 18:46 | disposition home or self-care (01) | DRG 313 ==
LOC: 6SEL 16:00
PROVIDERS: ADMIT Family Medicine; ATTEND Family Medicine
DX: R07.89 Other chest pain (principal); F23 Brief psychotic disorder; I48.0 Paroxysmal atrial fibrillation; I10 Essential (primary) hypertension; E78.5 Hyperlipidemia, unspecified; F17.200 Nicotine dependence, unspecified, uncomplicated; R25.1 Tremor, unspecified; Z79.01 Long term (current) use of anticoagulants; Z79.82 Long term (current) use of aspirin; Z79.899 Other long term (current) drug therapy; Z85.828 Personal history of other malignant neoplasm of skin; Z88.5 Allergy status to narcotic agent; Z82.49 Family history of ischemic heart disease and other diseases of the circulatory system
CPT/HCPCS: 80048; 82553; 84484; 85025; 93306